=== PATIENT | male | born 1990 | race Hispanic/Latino ===

== ENCOUNTER 2024-12-08 23:33 | Emergency (ER) | payer SELFPAY ==
[~2024-12-08] VITALS: Ht 182.9 cm; Wt 148.8 kg
[2024-12-09] MEDS: ketOROlac 60 MG VIAL (30MG/ML) IM ONE (00:53)
[2024-12-09 00:56] LABS: BASOPHILS # (AUTO) 0.02 K/uL (0.00-0.20); BASOPHILS % (AUTO) 0.2 % (0.0-5.0); HEMATOCRIT 50.8 % (42-54); IMMATURE GRANULOCYTE ABSOLUTE 0.05 K/uL (0-1); LYMPHOCYTES % (AUTO) 10.4 % (21.0-51.0); MEAN CORPUSCULAR HEMOGLOBIN 31.2 pg (27.0-33.0); MEAN CORPUSCULAR HGB CONC 34.3 g/dL (32.0-36.0); MONOCYTES # (AUTO) 0.2 K/uL (0.1-1.0); MONOCYTES % (AUTO) 2.4 % (3.0-13.0); NEUTROPHILS # (AUTO) 8.2 K/uL (1.8-7.7); NEUTROPHILS % (AUTO) 86.5 % (40.0-77.0); PLATELET COUNT (AUTO) 217 K/uL (130-400); RED BLOOD CELL COUNT(AUTO) 5.58 MIL/uL (4.50-6.20); RED CELL DISTRIBUTION WIDTH 12.3 % (11.0-15.5); WHITE BLOOD COUNT (AUTO) 9.5 K/uL (4.8-10.8)
[2024-12-09 01:07] LABS: CREATININE 0.9 mg/dL (0.5-1.3); POTASSIUM 3.9 mmol/L (3.5-5.1)
[2024-12-09 01:10] LABS: ALBUMIN 3.7 g/dL (3.5-5.0); BILIRUBIN,DIRECT 0.1 mg/dL (0.0-0.3); BILIRUBIN,TOTAL 0.5 mg/dL (0.2-1.0); TOTAL PROTEIN, SERUM 7.9 g/dL (6.0-8.3)
[2024-12-09 01:35] LABS: COVID19 (SARS ANTIGEN RAPID) PRESUMPTIVE NEGATIVE (NEGATIVE); INFLUENZA TYPE A Negative For Type A (NEGATIVE); INFLUENZA TYPE B Negative For Type B (NEGATIVE)
[2024-12-09 01:35] LABS: B-TYPE NATRIURETIC PEPTIDE 12 pg/mL (0-100)
[2024-12-09] MEDS: hydrALAZine 20MG/ML VIAL IV ONE (02:10)
[2024-12-09] MEDS ORDERED: IBUP-2070 PO (03:38)
[2024-12-09] MEDS ORDERED: CYCL10TA16 PO (03:38)
--- NOTE | 2024-12-09 03:38 | ERN ---
ED Note History of Present Illness Stated Complaint: ABDOMINAL PAIN Chief Complaint: Abdominal Pain Time Seen by MD: 23:39 Time Seen by Midlevel: 23:39 Dictation: The patient is a 33-year-old male with a history of hypertension, diabetes who presents to the emergency department with left lower repair onset Saturday. Patient reports he had a coughing episode and then a heard a pop and started having pain since. Denies any fevers, denies nausea vomiting or diarrhea, reports occasional shortness of breath. Patient reports he has been having a cough for two weeks. Allergies: Coded Allergies: No Known Drug Allergies (Unverified Allergy, Unknown, 12/08/24) Home Meds Active Scripts Cyclobenzaprine HCl (Flexeril) 10 Mg Tab, 10 MG PO TID for muscle sstiffness, #14 TAB 0 Refills Prov:JASON LOAIZA [employer] HE[employer] AIDE 12/09/24 Ibuprofen (Ibuprofen) 600 Mg Tablet, 600 MG PO Q6H PRN for PAIN, #10 TAB Prov:JASON LOAIZA [employer] AIDE 12/09/24 Past Medical History Past Medical History: Diabetes-Type II, Hypertension Surgical History: None RN Note Reviewed/Agreed w/PFSH: Yes Review of System Dictation Constitutional: Negative for fever,chills, and weight loss Eyes: Negative for injury, pain,redness, and discharge ENT: Negative for injury,pain or swelling Cardiovascular: Negative for chest pain, palpitations, and edema positive for left lower rib pain Respiratory: Negative for wheezing, positive for shortness of breath, cough Abdomen/GI: Negative for abdominal pain, nausea, vomiting, diarrhea, and constipation Back: Negative for injury and pain : Negative for injury, bleeding and discharge MS/Extremity: Negative for injury and deformity Skin: Negative for rash, and discoloration Neuro: Negative for headache, weakness, numbness, tingling, and seizure Psych: Negative for suicide ideation, homicidal ideation, and hallucinations Initial Vital Sign VS Vital Signs Date Time Temp Pulse Resp B/P (MAP) Pulse Ox O2 Delivery O2 Flow Rate FiO2 12/08/24 23:37 97.5 105 18 212/127 96 12/09/24 02:10 Room Air* 0 21 Physical Exam Dictation Vital Signs reviewed General Appearance: Alert, oriented x 3, no acute distress, well developed, nourished. Head and Face: non-traumatic. Eyes: PERRL, pink conjunctivas, eyelid no trauma, anterior chamber with arcus senilis. Ears: Pinnas intact and no signs of trauma or erythema ear canals clear and no discharge TM no erythema Nose: No discharge, no bleeding. Oropharynx: Mouth normal, tongue pink. pharynx clear,no erythema, tonsils no exudates, no abscesses noted, mucous membrane moist Neck: Supple, non-tender, no thyromegaly, no masses, no JVD, no bruits Breast:Deferred Chest:No tenderness, no crepitus, no paradoxical movement, no retractions Lungs:Clear, well-ventilated, symmetric, no rales, no wheezing, no rhonchi, no stridor, good breath sounds bilaterally Heart: Regular rate, regular rhythm, no murmur, no gallops Vascular: no peripheral edema, Abdomen: Soft, positive bowel sounds, nondistended, no guarding, Left upper abdominal tenderness,, no rebound, no masses no hepatomegaly, no splenomegaly, no Goss's sign, no hernias. Rectal: Deferred Genital: Deferred Neurological: Normal speech, motor function intact, sensory function intact Musculoskeletal: Neck nontender, full range of motion, back nontender, full range of motion, Extremities: nontender, full range of motion Skin: Color pink, dry, no turgor, no rash, no lacerations, no abrasions, no contusions. Lymphatic: Deferred Results (Laboratory/Radiology) Laboratory/Radiology Laboratory Tests Test 12/08/24 23:55 12/09/24 00:50 White Blood Count 9.5 K/uL (4.8-10.8) Red Blood Count 5.58 MIL/uL (4.50-6.20) Hemoglobin 17.4 g/dL (14.0-18.0) Hematocrit 50.8 % (42-54) Mean Corpuscular Volume 91.0 fL (79-99) Mean Corpuscular Hemoglobin 31.2 pg (27.0-33.0) Mean Corpuscular Hemoglobin Concent 34.3 g/dL (32.0-36.0) Red Cell Distribution Width 12.3 % (11.0-15.5) Platelet Count 217 K/uL (130-400) Mean Platelet Volume 10.6 fL (7.5-10.5) H Immature Granulocyte % (Auto) 0.5 % (0-1) Neutrophils (%) (Auto) 86.5 % (40.0-77.0) H Lymphocytes (%) (Auto) 10.4 % (21.0-51.0) L Monocytes (%) (Auto) 2.4 % (3.0-13.0) L Eosinophils (%) (Auto) 0.0 % (0.0-8.0) Basophils (%) (Auto) 0.2 % (0.0-5.0) Neutrophils # (Auto) 8.2 K/uL (1.8-7.7) H Lymphocytes # (Auto) 1.0 K/uL (1.0-4.8) Monocytes # (Auto) 0.2 K/uL (0.1-1.0) Eosinophils # (Auto) 0.00 K/uL (0.00-0.70) Basophils # (Auto) 0.02 K/uL (0.00-0.20) Absolute Immature Granulocyte (auto 0.05 K/uL (0-1) Nucleated Red Blood Cells 0.0 % (0.0-0.19) Sodium Level 137 mmol/L (136-145) Potassium Level 3.9 mmol/L (3.5-5.1) Chloride Level 100 mmol/L (101-111) L Carbon Dioxide Level 27 mmol/L (21-32) Blood Urea Nitrogen 13 mg/dL (7-18) Creatinine 0.9 mg/dL (0.5-1.3) Glomerular Filtration Rate Calc 114 mL/min (>90) Random Glucose 260 mg/dL (70-105) H Total Calcium 10.0 mg/dL (8.5-10.1) Magnesium Level 2.00 mg/dL (1.80-2.40) Total Bilirubin 0.5 mg/dL (0.2-1.0) Direct Bilirubin 0.1 mg/dL (0.0-0.3) Aspartate Amino Transf (AST/SGOT) 13 U/L (10-37) Alanine Aminotransferase (ALT/SGPT) 29 U/L (12-78) Alkaline Phosphatase 140 U/L (50-136) H Total Creatine Kinase 121 U/L (21-232) Troponin I High Sensitivity 5 ng/L (4-75) B-Type Natriuretic Peptide 12 pg/mL (0-100) Total Protein 7.9 g/dL (6.0-8.3) Albumin 3.7 g/dL (3.5-5.0) Lipase 26 U/L (16-77) Influenza Type A Antigen Negative For Type A Influenza Type B Antigen Negative For Type B SARS-CoV-2 Antigen (Rapid) PRESUMPTIVE NEGATIVE Labs Reviewed?: Yes EKG: (+) rhythm (Sinus rhythm) EKG Comment: Date:12/09/2024 Time:0000 Ventricular rate:95 TX interval:134 QRS duration:92 QT/QTc:337 EKG interpretation: Sinus rhythm Reviewed by ED Attending no STEMI ED Course ED Course Orders Procedure Category Date Status Time Covid19 (Sars Antigen LAB 12/08/24 Complete Rapid) 23:47 Influenza Type A & B, LAB 12/08/24 Complete Rapid 23:47 Ketorolac 60mg/2ml PHA 12/09/24 Complete (Toradol 60mg/2ml) 00:00 Cbc With Differential LAB 12/08/24 Complete 23:49 B-Type Natriuretic LAB 12/08/24 Complete Peptide 23:49 12 Lead Ekg Tracing- EKG 12/08/24 Logged Technical 23:49 Magnesium LAB 12/08/24 Complete 23:49 Creatine Kinase, Total LAB 12/08/24 Complete 23:49 Troponin I High LAB 12/08/24 Complete Sensitivity 23:49 Urinalysis Profile LAB 12/08/24 Logged 23:49 Basic Metabolic Panel LAB 12/08/24 Complete 23:49 Lipase LAB 12/08/24 Complete 23:49 Hepatic Function Panel LAB 12/08/24 Complete 23:49 Ribs Uni Lt W Pa RAD 12/09/24 Taken Chest 3+Vws 00:01 Ct Chest W/O Contrast CT 12/09/24 Taken 01:19 Drug Screen Urine LAB 12/09/24 Logged 01:20 Hydralazine 20mg Inj PHA 12/09/24 Complete (Apresoline 20mg In 02:00 Current Medications Medications (Trade) Dose Ordered Sig/Alysa Route PRN Reason Start Time Stop Time Status Last Admin Dose Admin Hydralazine HCl (APRESOLine 20MG INJ) 10 mg ONCE ONCE IV 12/09/24 02:00 12/09/24 02:01 DC 12/09/24 02:10 Ketorolac Tromethamine (toRADol 60MG/ 2ML) 60 mg ONCE ONCE IM 12/09/24 00:00 12/09/24 00:01 DC 12/09/24 00:53 Vital Signs Date Time Temp Pulse Resp B/P (MAP) Pulse Ox O2 Delivery O2 Flow Rate FiO2 12/09/24 02:10 99.1 95 18 167/96 99 Room Air* 0 21 12/08/24 23:37 97.5 105 18 212/127 96 Medical Decision Making MDM The patient is a 33-year-old male with a history of hypertension, diabetes who presents to the emergency department with left lower repair onset Saturday. Patient reports he had a coughing episode and then a heard a pop and started having pain since. Denies any fevers, denies nausea vomiting or diarrhea, reports occasional shortness of breath. Patient reports he has been having a cough for two weeks. CBC showed no leukocytosis, no anemia, chemistry showed mild hypochloremia, elevated blood glucose, no DKA, negative troponin, serology negative, CT chest so no consolidation, no rib fractures, no pneumothorax. Patient no acute distress. Blood pressure improved. We will be discharged follow up with PCP Differential diagnosis: Pneumonia, pneumothorax, ACS, rib fracture Need for hospitalization: Patient does not meet criteria for hospitalization. There are no social concerns with this patient. DX & DISP Disposition: Discharge Departure Impression: Primary Impression: Cough Additional Impressions: Rib pain, Uncontrolled hypertension, Uncontrolled diabetes mellitus, URI (upper respiratory infection) Condition: Stable Scripts Cyclobenzaprine HCl (Flexeril) 10 Mg Tab 10 MG PO TID for muscle sstiffness, #14 TAB 0 Refills Prov: JASON LOAIZA [employer] AIDE 12/09/24 Ibuprofen (Ibuprofen) 600 Mg Tablet 600 MG PO Q6H PRN for PAIN, #10 TAB Prov: JASON LOAIZA [employer] AIDE 12/09/24 Additional Instructions: Please follow up with the primary doctor in 1-2 days. Please return to ER if symptoms worsen. FOLLOW-UP WITH PRIMARY CARE PROVIDER IN 1 TO 2 DAYS. TAKE MEDICATIONS DIRECTED HERE IN THE EMERGENCY ROOM. OKAY TO CONTINUE HOME MEDICATIONS UNLESS OTHERWISE DISCUSSED DURING YOUR VISIT IN THE EMERGENCY ROOM TODAY. RETURN TO YOUR NEAREST EMERGENCY ROOM IF SYMPTOMS WORSEN OR IF THERE IS NO IMPROVEMENT. CALL 911 IF YOU NEED IMMEDIATE ASSISTANCE. TAKE TYLENOL OR MOTRIN [id number] NEEDED AND IF NO CONTRAINDICATIONS ARE PRESENT. INCREASE ORAL HYDRATION. A WOUND CULTURE OR URINE CULTURE WAS ORDERED HERE IN THE EMERGENCY ROOM DEPARTMENT PLEASE FOLLOW-UP WITH PRIMARY CARE PROVIDER AND ADVISE THEM TO GET REPEAT PORTS FROM OUR FACILITY. IF YOU HAD ANY JAS WRAP/SPLINTS THAT WERE APPLIED HERE, PLEASE DO NOT REMOVE THEM UNTIL YOU SEE YOUR PRIMARY CARE OR SPECIALTY. Referrals: SELF,REFERRAL (PCP) Time of Disposition: 03:38 I have reviewed the case, and I agree with, Diagnosis and Plan JASON LOAIZA Dec 09, 2024 03:38
[2024-12-09 04:02] VITALS: BP 164/85; PULSE 95; RESP 18; TEMP 99.1; O2SAT 96
--- NOTE | 2024-12-09 07:51 | EKG ---
Former[facility] Test Date: 2024-12-09 Test Time: 00:00:59 Pat Name: KANDY FERNANDEZ Department: ED Room: Gender: M Form Layer: 1088 : 1990 Requested By: JASON LOAIZA Order Number: [id number] Reading MD: Babs Jurado Measurements Intervals Murphy Rate: 95 P: 13 [place]: 134 QRS: 51 QRSD: 92 T: 26 QT: 337 QTc: 424 Interpretive Statements Sinus rhythm ST elev, probable normal early repol pattern No previous ECG available for comparison Electronically Signed On 12-09-2024 17:02:23 [employer] by Babs Jurado Please click the below link to view image of tracing.
--- NOTE | 2024-12-09 09:40 | HMCIMG ---
CT CHEST W/O CONTRAST HISTORY: Pain COMPARISON: None TECHNIQUE: Multiple sequential axial images of the chest were obtained from the thoracic inlet through upper abdomen. Patient was not given contrast through intravenous route. FINDINGS: There is no evidence of pulmonary nodule or parenchymal disease. No pleural effusion or pericardial effusion is seen. There is no evidence of pneumothorax. There are normal size mediastinal and hilar lymph nodes. The heart is not enlarged. Degenerative changes of the thoracolumbar spine are present. There is no evidence of adrenal nodule. Liver is enlarged with fatty changes measuring 19.5 cm. IMPRESSION: 1. No evidence of pulmonary nodule or effusion is seen. CT was performed with one or more following dose reduction techniques: automated exposure control, adjustment of the mA and kv according to patient's size, or use of a iterative reconstruction technique.
--- NOTE | 2024-12-09 12:57 | HMCIMG ---
RIBS UNI LT W PA CHEST 3+VWS REASON: sob, cough pain. COMPARISON: None TECHNIQUE: Frontal projection of the chest was obtained. 4 images of left ribs were obtained. FINDINGS: No acute pulmonary infiltrates is seen. The heart is not enlarged. No acute displaced fracture is seen. Costal cartilage calcifications are seen. IMPRESSION: Findings at described above.
== END 2024-12-09 04:03 | disposition home or self-care (01) ==
LOC: EDH 23:33
DX: R05.9 Cough, unspecified (principal); R07.81 Pleurodynia; E11.65 Type 2 diabetes mellitus with hyperglycemia; J06.9 Acute upper respiratory infection, unspecified; I10 Essential (primary) hypertension; Z79.899 Other long term (current) drug therapy; Z20.822 Contact with and (suspected) exposure to COVID-19
CPT/HCPCS: 99285; 87426; 82550; 80076; 83735; 84484; 80048; 83880; 83690; 85025; 87804 ×2; 36415; 96374; 71250; 71101; 93005; 96372; J1885; J0360